=== PATIENT | male | born 1965 | race African-American/Black ===

== ENCOUNTER 2018-08-29 08:34 | Inpatient (IN) | payer MEDICAID ==
[~2018-08-29] VITALS: Ht 182.9 cm; Wt 69.4 kg
[2018-08-29] MEDS ORDERED: SODIUM CHLORIDE 0.9% 1,000 ML IV ONE (09:15)
[2018-08-29 10:31] LABS: CHLORIDE 105 mEq/L (98-107)
[2018-08-29 10:32] LABS: PROTHROMBIN TIME 9.8 sec (9.1-11.1)
[2018-08-29 10:36] LABS: HEMOGLOBIN. 12.7 g/dL (14.0-18.0); MEAN CORPUSCULAR HEMOGLOBIN 25.1 pg (28.0-32.0); MEAN PLATELET VOLUME 8.9 fl (7.4-10.4); PLATELET 313 x1000/uL (130-400); RED BLOOD CELL COUNT 5.06 mill/uL (4.7-6.1); RED CELL DISTRIBUTION WIDTH 19.3 % (11.6-14.6)
[2018-08-29 10:47] LABS: CLARITY URINE CLOUDY (CLEAR); COLOR URINE YELLOW (YELLOW); KETONES URINE NEGATIVE (NEGATIVE); LEUKOCYTE ESTERASE URINE NEGATIVE (NEGATIVE); NITRITE URINE NEGATIVE (NEGATIVE); OCCULT BLOOD URINE 2+ (NEGATIVE); PROTEIN URINE 2+ (NEGATIVE); SPECIFIC GRAVITY URINE 1.018 (1.005-1.030); UROBILINOGEN URINE 0.2 E.U./dL (0.2-1.0)
[2018-08-29 11:07] LABS: *AMPHETAMINES SCREEN URINE NEGATIVE (NEGATIVE)
[2018-08-29 11:09] LABS: *BARBITURATES SCREEN URINE NEGATIVE (NEGATIVE); *BENZODIAZEPINES SCREEN URINE NEGATIVE (NEGATIVE); *COCAINE SCREEN URINE NEGATIVE (NEGATIVE); METHADONE URINE SCREEN NEGATIVE (NEGATIVE); OPIATES URINE SCREEN NEGATIVE (NEGATIVE)
[2018-08-29 11:10] LABS: CANNABINOID URINE SCREEN NEGATIVE (NEGATIVE); PHENCYCLIDINE URINE SCREEN NEGATIVE (NEGATIVE)
[2018-08-29 12:53] LABS: PLATELET ESTIMATE NORMAL
[2018-08-29] MEDS ORDERED: HYDROCODONE/ACETAMINOPHEN 5/325MG TABLET PO PRN (15:15)
[2018-08-29] MEDS ORDERED: ONDANSETRON HCL 4MG/2ML INJ IV PRN (15:15)
[2018-08-29] MEDS ORDERED: CLONIDINE 0.1MG TABLET PO PRN (15:15)
[2018-08-29] MEDS ORDERED: VANCOMYCIN 1 G PREMIX 200 ML IV SCH (15:30)
[2018-08-29 17:00] VITALS: BP 113/75
[2018-08-29 17:15] VITALS: BP 113/75
[2018-08-29] MEDS ORDERED: ASPIRIN 81MG TABLET PO SCH (18:00)
[2018-08-29] MEDS ORDERED: VANCOMYCIN 1500MG in DEXTROSE 5% WATER 250ML IV NR (18:00)
[2018-08-29] MEDS: ENOXAPARIN 30MG/0.3ML SYR SUBCUT SCH (18:17)
[2018-08-29] MEDS: DEXT 5%/0.45% NACL 1000ML 1,000 ML IV SCH (18:17)
[2018-08-29 20:00] VITALS: BP 98/64
[2018-08-29] MEDS: ASPIRIN 81MG TABLET PO SCH (21:00)
[2018-08-29] MEDS: ATORVASTATIN CALCIUM 10MG TABLET PO SCH (21:00)
[2018-08-29] MEDS: METOPROLOL TARTRATE 25MG TABLET PO SCH (21:00)
[2018-08-29] MEDS: PIPERACILLIN/TAZ 2.25G PREMIX 50 ML IV SCH (22:06)
[2018-08-30] VITALS: BP 102/70
[2018-08-30] MEDS: PIPERACILLIN/TAZ 2.25G PREMIX 50 ML IV SCH ×2 (03:10→10:16)
[2018-08-30 04:00] VITALS: BP 97/65
[2018-08-30 08:00] VITALS: BP 100/72
[2018-08-30 08:08] LABS: CHLORIDE 108 mEq/L (98-107)
[2018-08-30 08:14] LABS: HEMATOCRIT. 38.6 % (42.0-52.0); HEMOGLOBIN. 12.1 g/dL (14.0-18.0); MEAN CORPUSCULAR HEMOGLOBIN 25.5 pg (28.0-32.0); MEAN CORPUSCULAR VOLUME 81.6 fL (80.0-94.0); MEAN PLATELET VOLUME 8.6 fl (7.4-10.4); PLATELET 290 x1000/uL (130-400); RED BLOOD CELL COUNT 4.74 mill/uL (4.7-6.1); RED CELL DISTRIBUTION WIDTH 19.2 % (11.6-14.6)
[2018-08-30] MEDS: ASPIRIN 81MG TABLET PO SCH (08:39)
[2018-08-30] MEDS: METOPROLOL TARTRATE 25MG TABLET PO SCH ×2 (08:54→21:00)
[2018-08-30] MEDS: DEXT 5%/0.45% NACL 1000ML 1,000 ML IV SCH (10:16)
[2018-08-30 12:00] VITALS: BP 102/72
[2018-08-30] MEDS ORDERED: LORAZEPAM 2MG/ML CPJ IV NR (12:15)
[2018-08-30 12:30] LABS: PLATELET ESTIMATE NORMAL
[2018-08-30 16:00] VITALS: BP 92/68
[2018-08-30] MEDS ORDERED: CEFTRIAXONE 2 G PREMIX 50 ML IV SCH (16:30)
[2018-08-30] MEDS: CEFTRIAXONE 2 G in DEXTROSE 5% WATER 50 ML IV SCH (17:52)
[2018-08-30] MEDS: ENOXAPARIN 30MG/0.3ML SYR SUBCUT SCH (17:52)
[2018-08-30 19:58] VITALS: BP 102/66
[2018-08-30] MEDS: ATORVASTATIN CALCIUM 10MG TABLET PO SCH (21:39)
[2018-08-31] VITALS: BP 110/59
[2018-08-31] MEDS: DEXT 5%/0.45% NACL 1000ML 1,000 ML IV SCH ×2 (00:34→10:50)
[2018-08-31 04:00] VITALS: BP 120/77
[2018-08-31 07:28] LABS: HEMATOCRIT. 38.1 % (42.0-52.0); HEMOGLOBIN. 11.6 g/dL (14.0-18.0); MEAN CORPUSCULAR HEMOGLOBIN 25.1 pg (28.0-32.0); MEAN CORPUSCULAR VOLUME 82.3 fL (80.0-94.0); MEAN PLATELET VOLUME 8.6 fl (7.4-10.4); PLATELET 297 x1000/uL (130-400); RED BLOOD CELL COUNT 4.63 mill/uL (4.7-6.1); RED CELL DISTRIBUTION WIDTH 19.6 % (11.6-14.6)
[2018-08-31 07:53] VITALS: BP 117/71
[2018-08-31] MEDS: ASPIRIN 81MG TABLET PO SCH (10:26)
[2018-08-31] MEDS: METOPROLOL TARTRATE 25MG TABLET PO SCH ×2 (10:38→22:11)
[2018-08-31 11:44] VITALS: BP 103/60
[2018-08-31 13:28] LABS: PLATELET ESTIMATE NORMAL
[2018-08-31] MEDS ORDERED: VANCOMYCIN 1 G PREMIX 200 ML IV NR (15:00)
[2018-08-31 15:57] VITALS: BP 99/62
[2018-08-31] MEDS: CEFTRIAXONE 2 G in DEXTROSE 5% WATER 50 ML IV SCH (19:02)
[2018-08-31] MEDS: ENOXAPARIN 30MG/0.3ML SYR SUBCUT SCH (19:06)
[2018-08-31 20:00] VITALS: BP 100/60
[2018-08-31] MEDS: ATORVASTATIN CALCIUM 10MG TABLET PO SCH (21:00)
[2018-09-01] VITALS: BP 108/66
[2018-09-01 04:00] VITALS: BP 101/59
[2018-09-01 08:00] VITALS: BP 144/60
[2018-09-01] MEDS: ASPIRIN 81MG TABLET PO SCH (09:00)
[2018-09-01] MEDS: ACETAMINOPHEN 325MG TABLET PO PRN ×2 (10:10→16:58)
[2018-09-01] MEDS: METOPROLOL TARTRATE 25MG TABLET PO SCH ×2 (10:12→20:47)
[2018-09-01] MEDS: DEXT 5%/0.45% NACL 1000ML 1,000 ML IV SCH (10:15)
[2018-09-01 11:27] VITALS: BP 98/64
[2018-09-01] MEDS ORDERED: AMPICILLIN 2,000 MG in SODIUM CHLORIDE 0.9% 100 ML IV SCH (15:00)
[2018-09-01 15:54] VITALS: BP 99/67
[2018-09-01] MEDS: CEFTRIAXONE 2 G in DEXTROSE 5% WATER 50 ML IV SCH ×2 (16:25→23:24)
[2018-09-01] MEDS: ENOXAPARIN 30MG/0.3ML SYR SUBCUT SCH (18:39)
[2018-09-01 20:00] VITALS: BP 109/63
[2018-09-01] MEDS: AMPICILLIN 2,000 MG in SODIUM CHLORIDE 0.9% 100 ML IV SCH (20:47)
[2018-09-01] MEDS: ATORVASTATIN CALCIUM 10MG TABLET PO SCH (20:47)
[2018-09-02] VITALS: BP 110/71
[2018-09-02] MEDS: DEXT 5%/0.45% NACL 1000ML 1,000 ML IV SCH ×2 (01:55→19:52)
[2018-09-02 04:00] VITALS: BP 129/88
[2018-09-02] MEDS: CEFTRIAXONE 2 G in DEXTROSE 5% WATER 50 ML IV SCH ×2 (05:16→16:57)
[2018-09-02 07:55] VITALS: BP 114/84
[2018-09-02] MEDS: ENOXAPARIN 30MG/0.3ML SYR SUBCUT SCH (10:28)
[2018-09-02] MEDS: ACETAMINOPHEN 325MG TABLET PO PRN (10:28)
[2018-09-02] MEDS: ASPIRIN 81MG TABLET PO SCH (10:28)
[2018-09-02] MEDS: METOPROLOL TARTRATE 25MG TABLET PO SCH ×2 (10:29→20:50)
[2018-09-02] MEDS: LORAZEPAM 2MG/ML CPJ IV PRN ×2 (10:36→16:57)
[2018-09-02] MEDS: AMPICILLIN 2,000 MG in SODIUM CHLORIDE 0.9% 100 ML IV SCH ×2 (10:38→20:50)
[2018-09-02] MEDS ORDERED: LIDOCAINE HCL 1% 20ML VIAL (Pyxis) INJ ONE (10:53)
[2018-09-02 11:54] VITALS: BP 109/73
[2018-09-02] MEDS ORDERED: VANCOMYCIN 1 G PREMIX 200 ML IV SCH (12:00)
[2018-09-02 12:35] LABS: HEMATOCRIT. 34.5 % (42.0-52.0); HEMOGLOBIN. 10.8 g/dL (14.0-18.0); MEAN CORPUSCULAR HEMOGLOBIN 25.4 pg (28.0-32.0); MEAN CORPUSCULAR VOLUME 81.2 fL (80.0-94.0); MEAN PLATELET VOLUME 8.1 fl (7.4-10.4); PLATELET 315 x1000/uL (130-400); RED BLOOD CELL COUNT 4.25 mill/uL (4.7-6.1); RED CELL DISTRIBUTION WIDTH 18.8 % (11.6-14.6)
[2018-09-02 13:29] LABS: PLATELET ESTIMATE NORMAL
[2018-09-02 15:18] VITALS: BP 113/71
[2018-09-02 20:00] VITALS: BP 122/80
[2018-09-02] MEDS: ATORVASTATIN CALCIUM 10MG TABLET PO SCH (20:50)
[2018-09-03] VITALS: BP 120/88
[2018-09-03 04:00] VITALS: BP 125/80
[2018-09-03] MEDS: CEFTRIAXONE 2 G in DEXTROSE 5% WATER 50 ML IV SCH ×2 (05:10→18:49)
[2018-09-03 05:56] LABS: HEMATOCRIT. 32.5 % (42.0-52.0); HEMOGLOBIN. 10.3 g/dL (14.0-18.0); MEAN CORPUSCULAR HEMOGLOBIN 25.9 pg (28.0-32.0); MEAN CORPUSCULAR VOLUME 81.7 fL (80.0-94.0); MEAN PLATELET VOLUME 8.4 fl (7.4-10.4); PLATELET 301 x1000/uL (130-400); RED BLOOD CELL COUNT 3.98 mill/uL (4.7-6.1); RED CELL DISTRIBUTION WIDTH 18.6 % (11.6-14.6)
[2018-09-03 08:00] VITALS: BP 148/91
[2018-09-03 09:00] LABS: PLATELET ESTIMATE NORMAL
[2018-09-03] MEDS: ASPIRIN 81MG TABLET PO SCH (09:00)
[2018-09-03] MEDS: AMPICILLIN 2,000 MG in SODIUM CHLORIDE 0.9% 100 ML IV SCH ×2 (10:14→21:09)
[2018-09-03] MEDS: METOPROLOL TARTRATE 25MG TABLET PO SCH ×2 (10:14→21:10)
[2018-09-03] MEDS: DEXT 5%/0.45% NACL 1000ML 1,000 ML IV SCH (11:54)
[2018-09-03 12:00] VITALS: BP 113/78
[2018-09-03 16:00] VITALS: BP 134/88
[2018-09-03 20:29] VITALS: BP 142/83
[2018-09-03] MEDS: PANTOPRAZOLE SODIUM 40 MG/VIAL IV SCH (21:10)
[2018-09-03] MEDS: ATORVASTATIN CALCIUM 10MG TABLET PO SCH (21:10)
[2018-09-04] VITALS: BP 129/92
[2018-09-04] MEDS: DEXT 5%/0.45% NACL 1000ML 1,000 ML IV SCH ×2 (03:49→20:28)
[2018-09-04 04:31] VITALS: BP 141/87
[2018-09-04] MEDS: CEFTRIAXONE 2 G in DEXTROSE 5% WATER 50 ML IV SCH ×2 (06:02→18:42)
[2018-09-04 07:02] LABS: HEMATOCRIT. 33.1 % (42.0-52.0); HEMOGLOBIN. 10.4 g/dL (14.0-18.0); MEAN CORPUSCULAR HEMOGLOBIN 25.6 pg (28.0-32.0); MEAN CORPUSCULAR VOLUME 81.4 fL (80.0-94.0); MEAN PLATELET VOLUME 8.2 fl (7.4-10.4); PLATELET 309 x1000/uL (130-400); RED BLOOD CELL COUNT 4.06 mill/uL (4.7-6.1); RED CELL DISTRIBUTION WIDTH 18.4 % (11.6-14.6)
[2018-09-04 07:07] LABS: INR 1.1; PARTIAL THROMBOPLASTIN TIME 30.5 sec (23.4-31.0); PROTHROMBIN TIME 10.8 sec (9.1-11.1)
[2018-09-04] MEDS: AMPICILLIN 2,000 MG in SODIUM CHLORIDE 0.9% 100 ML IV SCH ×2 (08:24→20:26)
[2018-09-04] MEDS: PANTOPRAZOLE SODIUM 40 MG/VIAL IV SCH ×2 (08:24→20:27)
[2018-09-04] MEDS: METOPROLOL TARTRATE 25MG TABLET PO SCH ×2 (09:00→20:27)
[2018-09-04 12:00] VITALS: BP 122/76
[2018-09-04 12:18] LABS: PLATELET ESTIMATE NORMAL
[2018-09-04] MEDS ORDERED: SODIUM CHLORIDE 0.9% 10ML VIAL ONE (12:23)
[2018-09-04] MEDS ORDERED: MIDAZOLAM HCL 5 MG/5 ML VIAL IV PRN (15:46)
[2018-09-04] MEDS ORDERED: FENTANYL CITRATE/PF 50MCG/ML 2ML VIAL IV PRN (15:47)
[2018-09-04] MEDS ORDERED: MIDAZOLAM HCL 5 MG/5 ML VIAL ONE (15:48)
[2018-09-04] MEDS ORDERED: FENTANYL CITRATE/PF 50MCG/ML 2ML VIAL ONE (15:49)
[2018-09-04 20:00] VITALS: BP 112/73
[2018-09-04] MEDS: ATORVASTATIN CALCIUM 10MG TABLET PO SCH (20:27)
[2018-09-05] VITALS (7 sets, daily range): BP systolic 101–125; BP diastolic 56–78
[2018-09-05] MEDS: CEFTRIAXONE 2 G in DEXTROSE 5% WATER 50 ML IV SCH (05:20)
[2018-09-05] MEDS: METOPROLOL TARTRATE 25MG TABLET PO SCH ×2 (11:18→21:42)
[2018-09-05] MEDS: AMPICILLIN 2,000 MG in SODIUM CHLORIDE 0.9% 100 ML IV SCH ×2 (11:19→21:41)
[2018-09-05] MEDS: PANTOPRAZOLE SODIUM 40 MG/VIAL IV SCH ×2 (11:19→21:41)
[2018-09-05] MEDS ORDERED: VANCOMYCIN 1250MG in DEXTROSE 5% WATER 250ML IV SCH (13:00)
[2018-09-05] MEDS: ACETAMINOPHEN 325MG TABLET PO PRN (15:19)
[2018-09-05] MEDS: DEXT 5%/0.45% NACL 1000ML 1,000 ML IV SCH (15:22)
[2018-09-05] MEDS: ATORVASTATIN CALCIUM 10MG TABLET PO SCH (21:41)
[2018-09-07] MEDS ORDERED: VANCOMYCIN 1250MG in DEXTROSE 5% WATER 250ML IV SCH (09:00)
== END 2018-09-05 23:30 | DRG 720 ==
LOC: ER 08:42 → 6WST 10:54 → ENRESERV 14:51
PROVIDERS: ADMIT Internal Medicine Nephrology; ATTEND Internal Medicine Nephrology
PROC: 4A10X4Z Monitoring of Central Nervous Electrical Activity, External Approach (ICD-10-PCS; principal; 2018-08-31)
PROC: 02HV33Z Insertion of Infusion Device into Superior Vena Cava, Percutaneous Approach (ICD-10-PCS; 2018-09-02)
PROC: B548ZZA Ultrasonography of Superior Vena Cava, Guidance (ICD-10-PCS; 2018-09-02)
PROC: 0DH63UZ Insertion of Feeding Device into Stomach, Percutaneous Approach (ICD-10-PCS; 2018-09-04)
DX: A41.1 Sepsis due to other specified staphylococcus (principal); I63.9 Cerebral infarction, unspecified; G93.40 Encephalopathy, unspecified; E46 Unspecified protein-calorie malnutrition; C85.10 Unspecified B-cell lymphoma, unspecified site; N17.9 Acute kidney failure, unspecified; N18.4 Chronic kidney disease, stage 4 (severe); G20 Parkinson's disease; K29.70 Gastritis, unspecified, without bleeding; R13.12 Dysphagia, oropharyngeal phase; I13.10 Hypertensive heart and chronic kidney disease without heart failure, with stage 1 through stage 4 chronic kidney disease, or unspecified chronic kidney disease; D64.9 Anemia, unspecified; F03.90 Unspecified dementia, unspecified severity, without behavioral disturbance, psychotic disturbance, mood disturbance, and anxiety; B95.5 Unspecified streptococcus as the cause of diseases classified elsewhere; I69.354 Hemiplegia and hemiparesis following cerebral infarction affecting left non-dominant side; Z79.82 Long term (current) use of aspirin; Z99.2 Dependence on renal dialysis; Z68.20 Body mass index [BMI] 20.0-20.9, adult
CPT/HCPCS: 36415; 36569; 70551; 71045; 76937; 80048; 80202; 80305; 83605; 83880; 84484; 85651; 86140; 87076; 87077; 87186; 92610; 93005; 93306; 93880; 96365; 97110; 97162; 97166; 97530; 99285; C1725; C9113; J0290; J0696; J1650; J2060; J2250; J2543; J3010; J3370; J3490; J7030; J7040; J7050; J7060